=== PATIENT | male | born 1950 | race Caucasian/White ===

== ENCOUNTER 2018-04-10 15:49 | Inpatient (IN) | payer OTHER, BC ==
--- OUTSIDE RECORDS SUMMARY | 2018-04-10 15:51 | XMS REPORT | Clinical Summary ---
:1950 Author Organization [facility] Address [address] [place] [id number] Care Team Providers Name Role Phone Asked, No Pcp Primary Care Provider Unavailable Allergies No Known Allergies Medications Medication Sig Dispensed Refills Start Date End Date Status metoprolol TK 1 T PO BID 1 12/30/2017 Active tartrate WF (LOPRESSOR) 50 mg tablet losartan-hydrochl TK 1 T PO QD 1 12/30/2017 Active orothiazide (HYZAAR) 100-25 mg per tablet tamsulosin Take 1 capsule 90 capsule 3 01/20/2018 Active (FLOMAX) 0.4 mg (0.4 mg total) capsule by mouth daily. sulfamethoxazole- Take 1 tablet 14 tablet 0 01/13/2018 01/13/2018 Discontinued trimethoprim by mouth 2 (BACTRIM DS) (two) times a 800-160 mg per day for 7 tablet days. Active Problems No known active problems Encounters Date Type Specialty Care Team Description 02/03/2018 Procedure visit Urology Carlton Brown MD BPH with obstruction /lower urinary tract symptoms (Primary Dx) 01/19/2018 Telephone Urology Melissa Burnett 01/13/2018 Office Visit Urology Carlton Brown MD Elevated PSA (Primary Dx) 12/16/2017 Telephone Urology Carlton Brown MD after 04/09/2017 Family History Relation Name Status Comments Father Mother Social History Tobacco Use Types Packs/Day Years Used Date Never Smoker Smokeless Tobacco: Never Used Alcohol Use Drinks/Week oz/Week Comments No Sex Assigned at Date Recorded Not on file Job Start Date Occupation Industry Not on file Not on file Not on file Travel History Travel Start Travel End No recent travel history available. Last Filed Vital Signs Not on file Plan of Treatment Date Type Specialty Care Team Description 02/08/2019 Office Visit Urology Carlton Brown MD [address] [facility] [address] [place] [address] Health Maintenance Due Date Last Done Comments COLON CANCER SCREENING 1999 SHINGLES VACCINES (1 of 2) 1999 PNEUMOCOCCAL POLYSACCHARIDE VACCINE AGE 65 AND OVER 2014 PNEUMOCOCCAL-13 2014 INFLUENZA VACCINE 10/29/2017 Procedures Procedure Name Priority Date/Time Associated Comments Diagnosis POC URINALYSIS Routine 02/03/2018 2:30 PM BPH with Results for this DIPSTICK DANCE DIRECTOR obstruction/lower procedure are in urinary tract the results symptoms section. PSA, TOTAL AND FREE Routine 01/13/2018 2:32 PM Elevated PSA Results for this CDT procedure are in the results section. POC URINALYSIS Routine 01/13/2018 1:32 PM Elevated PSA Results for this DIPSTICK CDT procedure are in the results section. after 04/09/2017 Results POC urinalysis dipstick (02/03/2018 2:30 PM DANCE DIRECTOR)Only the most recent of2 resultswithin the time period is included. Color urine, POC Yellow Clarity urine, POC Clear Glucose urine, POC 1+ (A) Negative Bilirubin urine, POC Negative Negative Ketones urine, POC Negative Negative Specific gravity urine, POC 1.020 1.005 - 1.030 Blood urine, POC Negative Negative pH urine, POC 6.5 5.0, 5.5, 6.0, 6.5, 7.0, 7.5, 8.0, 8.5 Protein urine, POC Negative Negative Urobilinogen urine, POC <2.0 <2.0 Nitrite urine, POC Negative Negative Leukocyte esterase urine, POC Negative Negative Specimen Urine PSA, total and free (01/13/2018 2:32 PM CDT) PSA 2.6 0.0 - 4.0 ng/mL [facility] Comment: Brian ECLIA methodology. According to the [employer] [employer], Serum PSA should decrease and remain at undetectable levels after radical prostatectomy. The AUA defines biochemical recurrence as an initial PSA value 0.2 ng/mL or greater followed by a subsequent confirmatory PSA value 0.2 ng/mL or greater. Values obtained with different assay methods or kits cannot be used interchangeably. Results cannot be interpreted as absolute evidence of the presence or absence of malignant disease. PSA, free 0.73Comment: Brian ECLIA methodology. N/A ng/mL [facility] PSA, free percent 28.1 % [facility] Comment: The table below lists the probability of prostate cancer for men with non-suspicious DEWAYNE results and total PSA between 4 and 10 ng/mL, by patient age (Aneesh et al, RUTH 1998, 279:1542). % Free PSA 50-64 yr 65-75 yr 0.00-10.00%56% 55% 10.01-15.00%24% 35% 15.01-20.00%17% 23% 20.01-25.00%10% 20% >25.00% 5% 9% Please note:Aneesh et al did not make specific recommendations regarding the use of percent free PSA for any other population of men. Specimen Blood Narrative Performed At Performed at: [facility] [address] [place], [id number] Database Design Analyst: Bijan Blum MD, Phone:[phone] Performing Organization Address City/State/Zipcode Phone Number [facility] after 04/09/2017 Insurance Payer Benefit Plan / Group Subscriber ID Type Phone Address BCBS BCBS CHOICE PPO/FEDERAL EMPL PPO xxxxxxxxxxxx PPO Advance Directives Patient has advance care planning documents on file. For more information, please contact:Drew Edwards[address] [place] [address]
--- OUTSIDE RECORDS SUMMARY | 2018-04-10 15:51 | XMS REPORT ---
:1950 Author Organization [employer] Care Team Providers Name Role Phone Dale Emiliano Provider Role Unavailable Allergies, Adverse Reactions, Alerts Substance Reaction Event Type N.K.D.A. Info Not Available Non Drug Allergy Problems Problem Type Condition Code Onset Dates Condition Status Assessment Lower urinary tract symptoms R39.9 Active Problem HTN, goal below 150/90 I10 Active Problem Elevated PSA R97.20 Active Assessment Left anterior knee pain M25.562 Active Assessment Status post fall Z91.81 Active Assessment HTN, goal below 150/90 I10 Active Assessment Elevated PSA R97.20 Active Medications Medication Code Code Instructions Start End Date Status Dosage System Date Metoprolol [facility] 78507275491 50 MG Orally Active 1 tablet Tartrate Twice a day with food Losartan [facility] 57206421158 100-25 MG Orally Active 1 tablet Potassium-HCTZ Once a day Results Name Result Date Reference Range Unit Abnormality Flag Knee Left 3 View Summary Purpose eClinicalWorks Submission
--- NOTE | 2018-04-10 16:33 | EDPHYS ---
Physician Documentation [facility] Name: César Cortes Age: 68 yrs Sex: Male : 1950 Arrival Date: 04/10/2018 Time: 15:50 Bed 6 Private MD: [facility] ED Physician Nura Schulz HPI: 04/10 16:26 This 68 yrs old Male presents to ER via Ambulatory with complaints of jr8 Abnormal Lab Results. 16:26 Patient with recent diagnosis of Type 2 diabetes. Was started on Metformin and one jr8 other diabetic medication. Prior to being started on them had normal renal function. Has been feeling and doing well. Today had recheck of labs for follow up. Was called this evening to go to hospital for renal failure. Denies any symptoms . Severity of symptoms: At their worst the symptoms were mild in the emergency department the symptoms are unchanged. The patient has not experienced similar symptoms in the past. The patient has been recently seen by a physician:. Historical: - Allergies: 16:23 No Known Allergies; ph - PMHx: 16:23 Hypertension; Diabetes - NIDDM; ph - PSHx: 16:23 None; ph - Immunization history:: Adult Immunizations unknown. - Social history:: Smoking status: Patient/guardian denies using tobacco. - Ebola Screening: : No symptoms or risks identified at this time. ROS: 16:26 Constitutional: Negative for fever, chills, and weight loss, Eyes: Negative for injury, jr8 pain, redness, and discharge, ENT: Negative for injury, pain, and discharge, Neck: Negative for injury, pain, and swelling, Cardiovascular: Negative for chest pain, palpitations, and edema, Respiratory: Negative for shortness of breath, cough, wheezing, and pleuritic chest pain, Abdomen/GI: Negative for abdominal pain, nausea, vomiting, diarrhea, and constipation, Back: Negative for injury and pain, MS/Extremity: Negative for injury and deformity, Skin: Negative for injury, rash, and discoloration, Neuro: Negative for headache, weakness, numbness, tingling, and seizure. Exam: 16:26 Eyes: Pupils equal round and reactive to light, extra-ocular motions intact. Lids and jr8 lashes normal. Conjunctiva and sclera are non-icteric and not injected. Cornea within normal limits. Periorbital areas with no swelling, redness, or edema. ENT: Nares patent. No nasal discharge, no septal abnormalities noted. Tympanic membranes are normal and external auditory canals are clear. Oropharynx with no redness, swelling, or masses, exudates, or evidence of obstruction, uvula midline. Mucous membranes moist. Neck: Trachea midline, no thyromegaly or masses palpated, and no cervical lymphadenopathy. Supple, full range of motion without nuchal rigidity, or vertebral point tenderness. No Meningismus. Cardiovascular: Regular rate and rhythm with a normal S1 and S2. No gallops, murmurs, or rubs. Normal PMI, no JVD. No pulse deficits. Respiratory: Lungs have equal breath sounds bilaterally, clear to auscultation and percussion. No rales, rhonchi or wheezes noted. No increased work of breathing, no retractions or nasal flaring. Abdomen/GI: Soft, non-tender, with normal bowel sounds. No distension or tympany. No guarding or rebound. No evidence of tenderness throughout. Back: No spinal tenderness. No costovertebral tenderness. Full range of motion. Skin: Warm, dry with normal turgor. Normal color with no rashes, no lesions, and no evidence of cellulitis. MS/ Extremity: Pulses equal, no cyanosis. Neurovascular intact. Full, normal range of motion. Neuro: Awake and alert, GCS 15, oriented to person, place, time, and situation. Cranial nerves II-XII grossly intact. Motor strength 5/5 in all extremities. Sensory grossly intact. Cerebellar exam normal. Normal gait. Vital Signs: 16:21 BP 155 / 87; Pulse 66; Resp 18; Temp 98.2; Pulse Ox 100% on R/A; Weight 81.19 kg; ph Height 5 ft. 6 in. (167.64 cm); Pain 0/10; 18:04 BP 140 / 72; Pulse 58; Resp 14; Pulse Ox 99% on R/A; aj1 18:47 BP 129 / 71; Pulse 64; Resp 18; Pulse Ox 99% on R/A; aj1 20:01 BP 138 / 74; Pulse 62; Resp 18; Pulse Ox 97% on R/A; aj1 16:21 Body Mass Index 28.89 (81.19 kg, 167.64 cm) ph MDM: 16:09 Patient medically screened. jr8 16:26 ED course: Dr. Lopez consulted and will see patient . 16:26 Data reviewed: vital signs, nurses notes, lab test result(s), EKG, radiologic studies, jr8 ultrasound. Data interpreted: Pulse oximetry: on room air is 100 %. Interpretation: normal. Counseling: I had a detailed discussion with the patient and/or guardian regarding: the historical points, exam findings, and any diagnostic results supporting the discharge/admit diagnosis, lab results, radiology results, the need for further work-up and treatment in the hospital. 04/10 16:22 Order name: CBC with Diff; Complete Time: 16:47 04/10 16:22 Order name: Basic Metabolic Panel; Complete Time: 17:07 04/10 16:22 Order name: LFT's; Complete Time: 17:07 04/10 16:22 Order name: CK; Complete Time: 17:07 04/10 16:22 Order name: LDH; Complete Time: 17:07 04/10 16:25 Order name: US Rp Exam Complete 04/10 16:22 Order name: IV; Complete Time: 16:42 04/10 16:22 Order name: EKG; Complete Time: 16:23 Administered Medications: 17:20 Drug: NS 0.9% 1000 ml Route: IV; Rate: 1000 ml; Site: right antecubital; aj1 17:20 CANCELLED (Physician Discretion): NS 0.9% 1000 ml IV at 250 ml/hr continuous aj1 18:01 Drug: NS 0.9% 1000 ml Route: IV; Rate: 125 ml/hr; Site: right antecubital; aj1 Disposition: 04/11 09:34 Co-signature as Attending Physician, Nura Schulz MD. Disposition: 04/10/18 16:32 Hospitalization ordered by Seamus Valle for Inpatient Admission. Preliminary diagnosis is Acute kidney failure. - Bed requested for Telemetry/MedSurg (Inpatient). - Status is Inpatient Admission. aj1 - Condition is Stable. - Problem is new. - Symptoms are unchanged. UTI on Admission? No Signatures: Dispatcher [employer] EDMS Katerina Carolina Angela, RN RN aj1 Zackery De Dios PA PA jr8 Kym Garcia, VALDEMAR RN ph Nura Schulz MD MD gs Corrections: (The following items were deleted from the chart) 04/10 17:20 16:25 NS 0.9% 1000 ml IV at 250 ml/hr continuous ordered. jr8 aj1 17:51 16:32 Hospitalization Ordered by Seamus Valle DO for Inpatient Admission. Preliminary bd diagnosis is Acute kidney failure. Bed requested for Telemetry/MedSurg (Inpatient). Status is Inpatient Admission. Condition is Stable. Problem is new. Symptoms are unchanged. UTI on Admission? No. jr8 20:05 17:51 04/10/2018 16:32 Hospitalization Ordered by Seamus Valle DO for Inpatient aj1 Admission. Preliminary diagnosis is Acute kidney failure. Bed requested for Telemetry/MedSurg (Inpatient). Status is Inpatient Admission. Condition is Stable. Problem is new. Symptoms are unchanged. UTI on Admission? No. bd
--- NOTE | 2018-04-10 16:33 | ER ---
Nurse's Notes [facility] Name: César Cortes Age: 68 yrs Sex: Male : 1950 Arrival Date: 04/10/2018 Time: 15:50 Bed 6 Private MD: Emiliano Hunter Diagnosis: Acute kidney failure Presentation: 04/10 16:19 Presenting complaint: Patient states: I had bloodwork done today and they called me and ph said to come here because my kidney function was bad because of the medicine they have me on." Reports taking Metformin glipizide for approx 1 month, only complaint pt reports is dizziness upon standing, denies pain, swelling, decreased urination, or SOB. Transition of care: patient was not received from another setting of care. Onset of symptoms was April 10, 2018. Risk Assessment: Do you want to hurt yourself or someone else? Patient reports no desire to harm self or others. Initial Sepsis Screen: Does the patient meet any 2 criteria? No. Patient's initial sepsis screen is negative. Does the patient have a suspected source of infection? No. Patient's initial sepsis screen is negative. Care prior to arrival: None. 16:19 Method Of Arrival: Ambulatory ph 16:19 Acuity: JOHN 3 ph Historical: - Allergies: 16:23 No Known Allergies; ph - PMHx: 16:23 Hypertension; Diabetes - NIDDM; ph - PSHx: 16:23 None; ph - Immunization history:: Adult Immunizations unknown. - Social history:: Smoking status: Patient/guardian denies using tobacco. - Ebola Screening: : No symptoms or risks identified at this time. Screenin:20 Abuse screen: Denies threats or abuse. Denies injuries from another. Nutritional aj1 screening: No deficits noted. Tuberculosis screening: No symptoms or risk factors identified. 20:03 Fall Risk No fall in past 12 months (0 pts). No secondary diagnosis (0 pts). IV access aj1 (20 points). Ambulatory Aid- None/Bed Rest/Nurse Assist (0 pts). Gait- Normal/Bed Rest/Wheelchair (0 pts) Mental Status- Oriented to own ability (0 pts). Total Kim Fall Scale indicates No Risk (0-24 pts). Assessment: 16:20 General: Appears in no apparent distress. comfortable, Behavior is calm, cooperative, aj1 appropriate for age. Pain: Denies pain. Neuro: Level of Consciousness is awake, alert, obeys commands, Speech is normal, Facial symmetry appears normal, Reports dizziness, upon standing. Cardiovascular: Patient's skin is warm and dry. Respiratory: Airway is patent Respiratory effort is even, unlabored, Respiratory pattern is regular, symmetrical. GI: No signs and/or symptoms were reported involving the gastrointestinal system. : No signs and/or symptoms were reported regarding the genitourinary system. EENT: No signs and/or symptoms were reported regarding the EENT system. Derm: No signs and/or symptoms reported regarding the dermatologic system. Skin is pink, warm \\T\\ dry. normal. Musculoskeletal: No signs and/or symptoms reported regarding the musculoskeletal system. Circulation, motion, and sensation intact. 17:30 Reassessment: Patient appears in no apparent distress at this time. No changes from aj1 previously documented assessment. Patient and/or family updated on plan of care and expected duration. Pain level reassessed. Patient is alert, oriented x 3, equal unlabored respirations, skin warm/dry/pink. 18:46 Reassessment: Patient appears in no apparent distress at this time. No changes from aj1 previously documented assessment. Patient and/or family updated on plan of care and expected duration. Pain level reassessed. Patient is alert, oriented x 3, equal unlabored respirations, skin warm/dry/pink. 19:45 Reassessment: Patient appears in no apparent distress at this time. No changes from aj1 previously documented assessment. Patient and/or family updated on plan of care and expected duration. Pain level reassessed. Patient is alert, oriented x 3, equal unlabored respirations, skin warm/dry/pink. Vital Signs: 16:21 BP 155 / 87; Pulse 66; Resp 18; Temp 98.2; Pulse Ox 100% on R/A; Weight 81.19 kg; ph Height 5 ft. 6 in. (167.64 cm); Pain 0/10; 18:04 BP 140 / 72; Pulse 58; Resp 14; Pulse Ox 99% on R/A; aj1 18:47 BP 129 / 71; Pulse 64; Resp 18; Pulse Ox 99% on R/A; aj1 20:01 BP 138 / 74; Pulse 62; Resp 18; Pulse Ox 97% on R/A; aj1 16:21 Body Mass Index 28.89 (81.19 kg, 167.64 cm) ph ED Course: 15:50 Patient arrived in ED. as 15:51 Emiliano Hunter DO is Private Physician. as 16:09 Ascencion Rich PA is PHCP. cp 16:09 Nura Schulz MD is Attending Physician. cp 16:09 PHCP role handed off by Ascencion Rich PA jr8 16:09 Zackery De Dios PA is PHCP. jr8 16:10 Cyndee Douglass RN is Primary Nurse. aj1 16:20 Patient has correct armband on for positive identification. Bed in low position. Call aj1 light in reach. Side rails up X 1. 16:20 Arm band placed on. aj1 16:20 No provider procedures requiring assistance completed. aj1 16:21 Triage completed. ph 16:31 Seamus Valle DO is Hospitalizing Provider. jr8 16:36 EKG done, by swimming pool service technician. reviewed by Zackery VERAS. sm3 16:41 Inserted saline lock: 20 gauge in right forearm, using aseptic technique. Blood bp collected. 20:01 Patient admitted, IV remains in place. aj1 20:03 Report given to VALDEMAR Augustin on 4th floor. aj1 Administered Medications: 17:20 Drug: NS 0.9% 1000 ml Route: IV; Rate: 1000 ml; Site: right antecubital; aj1 17:20 CANCELLED (Physician Discretion): NS 0.9% 1000 ml IV at 250 ml/hr continuous aj1 18:01 Drug: NS 0.9% 1000 ml Route: IV; Rate: 125 ml/hr; Site: right antecubital; aj1 Output: 17:48 Urine: 150ml (Voided); Total: 150ml. aj1 Outcome: 16:32 Decision to Hospitalize by Provider. jr8 20:04 Admitted to Tele accompanied by tech, via wheelchair, with chart. aj1 20:04 Condition: stable 20:04 Discharge instructions given to patient, Instructed on discharge instructions, follow up and referral plans. Demonstrated understanding of instructions, follow-up care. 20:05 Patient left the ED. aj1 Signatures: Cyndee Douglass RN RN aj1 [place]a [place] as Zackery De Dios PA PA jr8 Kym Garcia RN RN ph Ascencion Rich PA PA cp Peltier, Brian RN RN bp Juanita Sevilla 3
[2018-04-10 16:44] LABS: Absolute Lymphocytes (CBC) 0.9 K/uL (0.7-4.9); Absolute Monocytes 0.4 K/uL (0.1-1.3); Absolute Neutrophil 3.2 K/uL (1.8-8.0); Basophils % 0.4 % (0-1.3); Eosinophils % 2.1 % (0-4.4); Hematocrit 39.9 % (39.6-49.0); Lymphocytes % 19.2 % (15.3-44.8); MPV 7.6 fL (7.6-11.3); Monocytes % 9.1 % (3.3-12.3); RBC Red Blood Cell Count 4.42 M/uL (4.33-5.43)
[2018-04-10 17:01] LABS: Albumin 4.6 g/dL (3.4-5.0); Bilirubin Direct 0.3 mg/dL (0-0.2); Bilirubin Total 0.9 mg/dL (0.2-1.0); Potassium 3.8 mmol/L (3.5-5.1); Protein, Total 8.2 g/dL (6.4-8.2)
--- NOTE | 2018-04-10 17:04 | P.HP ---
Certification for Inpatient Patient admitted to: Inpatient With expected LOS: >2 Midnights Patient will require the following post-hospital care: None Practitioner: I am a practitioner with admitting privileges, knowledge of patient current condition, hospital course, and medical plan of care. Services: Services provided to patient in accordance with Admission requirements found in Title 42 Section 412.3 of the Code of Federal Regulations Patient History Date of Service: 04/10/18 [facility] for [facility]: Abnormal lab History of Present Illness: 68-year-old male presented to the emergency room after he was sent by his PCP due to abnormal lab. Apparently the patient was diagnosed with diabetes about 3-6 weeks ago. At that time his A1c was greater than 14. The patient was started on metformin and glyxambi(empagliflozin/linagliptin) for is diabetes. Patient previously on losartan/hydrochlorothiazide, metoprolol and Flomax for hypertension and BPH. He went to his PCP to get re-evaluated indicated acute renal failure. Patient was sent to the emergency room for further evaluation. Patient denied any significant nausea, vomiting, fever, chills. No significant fatigue or chest pain noted. In the ER patient was evaluated. Lab reviewed. Repeat lab obtained. Patient admitted for further treatment. Nephrology consulted. Patient getting renal ultrasound. When I saw the patient ER, he appeared stable. No complaints noted. Patient denies taking any nonsteroidal anti-inflammatories. Home medications reviewed. Patient also reports that he has been walking about 2 miles a day. Allergies No Known Allergies Allergy (Unverified 05/01/12 17:53) Home medications list reviewed: Yes Home Medications: Losartan/Hydrochlorothiazide [Losartan-Hctz 100-25 mg Tab] 1 each PO DAILY 05/02 Metoprolol Succinate [Toprol Xl*] 50 mg PO BID 05/02/12 - Past Medical/Surgical History Diabetic: No -: HTN -: Diabetes mellitus type 2 -: BPH -: Hernia repair -: Anal fissure Psychosocial/ Personal History: Patient is . He has 1 child. He is retired natural sciences professor. - Family History Mother -: Diabetes - Social History Smoking Status: Never smoker Alcohol use: No CD- Drugs: No Caffeine use: Yes Place of Residence: Home Review of Systems General: As per HPI Eyes: Unremarkable ENT: Unremarkable Respiratory: Unremarkable Cardiovascular: Unremarkable Gastrointestinal: Unremarkable Genitourinary: Unremarkable Musculoskeletal: Unremarkable Integumentary: Unremarkable Neurological: Unremarkable Lymphatics: Unremarkable Physical Examination - Physical Exam General: Alert, In no apparent distress, Oriented x3, Cooperative HEENT: Atraumatic, Normocephalic, PERRLA, Mucous membr. moist/pink Neck: Supple, No Thyromegaly Respiratory: Clear to auscultation bilaterally, Normal air movement Cardiovascular: Normal pulses, Regular rate/rhythm Gastrointestinal: Normal bowel sounds, Soft and benign, Non-distended, No tenderness, No masses, No rebound, No guarding Musculoskeletal: No erythema, No tenderness, No warmth Integumentary: No tenderness/swelling, No erythema, No warmth, No cyanosis Neurological: Normal speech, Normal strength at 5/5 x4 extr, Normal tone, Normal affect - Studies Laboratory Data (last 24 hrs) 04/10/18 16:30: WBC 4.7, Hgb 13.2 L, Hct 39.9, Plt Count 154 Assessment and Plan - Plan Impression: Acute renal failure likely related to medications Diabetes mellitus type 2, uncontrolled Hypertension BPH Plan: Acute renal failure likely related to medications: Patient admitted for further evaluation. Patient given IV fluid bolus in the emergency room. Will continue with IV fluids. Will monitor strict input and output. Will hold off on Mckeon catheter due to history of BPH. Patient requests no urinary catheter as well. Acute renal failure likely related to multiple medications including metformin, glyxambi(empagliflozin/linagliptin), and losartan/ hydrochlorothiazide. All these medications will be discontinued. Patient likely would benefit with basal insulin but will check to see how he does with sliding scale. Nephrology has been consulted. Await renal ultrasound findings. Will continue monitor patient on IV fluids. Diabetes mellitus type 2, uncontrolled: Will discontinue metformin, glyxambi( empagliflozin/linagliptin). Will continue sliding scale. Patient may benefit with basal insulin as A1c still 9.4. Will check to see how he responds to current diet. Hypertension: Will hold losartan/hydrochlorothiazide due to acute renal failure. Will continue with metoprolol. Will provide IV hydralazine as needed. BPH: Will continue with Flomax. Will hold off on Mckeon catheter. Discharge Plan: Home Plan to discharge in: Greater than 2 days - Advance Directives Does patient have a Living Will: Yes Does patient have a Durable POA for Healthcare: Yes - Code Status/Comfort Care Code Status Assessed: Yes (Patient full code.) Time Spent Managing Pts Care (In Minutes): 55
[2018-04-10] MEDS ORDERED: NA CHLORIDE 0.9% 2,000 ML ONE (17:19)
--- NOTE | 2018-04-10 18:25 | EKG ---
Test Date: 2018-04-10 Test Time: 16:17:30 Depot Manager: NORMAN MEASUREMENT RESULTS: Intervals: Rate: 67 UT: 224 QRSD: 94 QT: 398 QTc: 420 [place]: P: 47 UT: 224 QRS: 8 T: 47 INTERPRETIVE STATEMENTS: Sinus rhythm with 1st degree AV block Possible Left atrial enlargement Borderline ECG Compared to ECG 06/10/2016 06:59:31 No significant changes Electronically Signed On 04-10-18 18:24:47 [employer] by Kam Holland
--- NOTE | 2018-04-10 20:07 | RAD REPORT ---
EXAM DESCRIPTION: US - Renal Ultrasound-Complete - 04/10/2018 7:48 pm CLINICAL HISTORY: acute renal failure COMPARISON: No comparisons FINDINGS: Both kidneys are normal in size, shape and echotexture. The right kidney measures 10.5 x 5.3 x 5.0 cm. No hydronephrosis, focal mass or perinephric fluid. The left kidney measures 11.2 x 5.1 x 4.7 cm. No hydronephrosis, focal mass or perinephric fluid. The urinary bladder is incompletely distended without gross abnormality seen. IMPRESSION: Unremarkable renal sonogram.
[2018-04-10] MEDS ORDERED: ONDANSETRON 4 MG/2 ML VIAL IV PRN (20:25)
[2018-04-10] MEDS ORDERED: HYDRALAZINE HCL 20 MG/ML VIAL IV PRN (20:25)
[2018-04-10] MEDS ORDERED: ACETAMINOPHEN 500 MG TAB PO PRN (20:25)
[2018-04-10 20:28] VITALS: BMI 30.1
[2018-04-10] MEDS: INSULIN -REGULAR HUMAN 50 UNIT/0.5 ML ML SQ SCH (21:00)
[2018-04-10] MEDS ORDERED: METOPROLOL TAR 50 MG TAB PO SCH (21:00)
[2018-04-10] MEDS: FAMOTIDINE 20 MG TAB PO SCH (21:34)
[2018-04-10] MEDS: NA CHLORIDE 0.9% 1,000 ML IV SCH (21:34)
[2018-04-10] MEDS: TAMSULOSIN 0.4 MG SR CAP PO SCH (21:34)
[2018-04-10 21:36] LABS: Thyroid Stimulating Hormone 12.5 uIU/mL (0.360-3.740)
[2018-04-11] MEDS: NA CHLORIDE 0.9% 1,000 ML IV SCH (03:17)
[2018-04-11 04:00] LABS: Urine Protein/Creatinine Ratio 0.23 ratio (<0.15)
[2018-04-11 04:27] LABS: Urine Appearance CLEAR; Urine Bilirubin NEGATIVE (NEG); Urine Blood NEGATIVE (NEG); Urine Color YELLOW; Urine Glucose 2+ (NEG); Urine Protein NEGATIVE (NEG); Urine Specific Gravity 1.015 (1.005-1.030); Urine Urobilinogen 0.2 mg/dL (0.2-1.0); Urine pH 5.5 (5.0-7.0)
[2018-04-11 05:02] LABS: Urine Bacteria <20 /HPF (NONE SEEN); Urine Culture Reflex Order NOT NEEDED; Urine RBC NONE SEEN /HPF (NONE SEEN)
[2018-04-11 06:31] LABS: Absolute Lymphocytes (CBC) 1.1 K/uL (0.7-4.9); Absolute Monocytes 0.3 K/uL (0.1-1.3); Absolute Neutrophil 1.9 K/uL (1.8-8.0); Eosinophils % 2.6 % (0-4.4); Hematocrit 34.4 % (39.6-49.0); Lymphocytes % 31.7 % (15.3-44.8); MPV 7.6 fL (7.6-11.3); Monocytes % 9.3 % (3.3-12.3); RBC Red Blood Cell Count 3.84 M/uL (4.33-5.43)
[2018-04-11 06:44] LABS: Magnesium 2.2 mg/dL (1.8-2.4); Potassium 3.3 mmol/L (3.5-5.1)
[2018-04-11] MEDS: INSULIN -REGULAR HUMAN 50 UNIT/0.5 ML ML SQ SCH ×4 (07:30→21:00)
[2018-04-11] MEDS ORDERED: METOPROLOL TAR 25 MG TAB PO SCH (09:00)
--- NOTE | 2018-04-11 09:42 | P.PN ---
Subjective Date of Service: 04/11/18 Primary Care Provider: Dr. Emiliano Hunter; [facility] Chief Complaint: Abnormal lab Subjective: Doing well (No complaints noted.) Physical Examination - Vital Signs Temperature: 97.8 F Blood Pressure: 111/66 Pulse: 56 Respirations: 18 Pulse Ox (%): 98 - Physical Exam General: Alert, In no apparent distress, Oriented x3, Cooperative HEENT: Atraumatic Neck: Supple Respiratory: Clear to auscultation bilaterally, Normal air movement Cardiovascular: Normal pulses, Regular rate/rhythm Gastrointestinal: Normal bowel sounds, Soft and benign, Non-distended, No tenderness, No masses, No rebound, No guarding Musculoskeletal: No erythema, No tenderness, No warmth Integumentary: No tenderness/swelling, No erythema, No warmth, No cyanosis Neurological: Normal speech, Normal strength at 5/5 x4 extr, Normal tone, Normal affect Lymphatics: No axilla or inguinal lymphadenopathy - Studies Laboratory Data (last 24 hrs) 04/10/18 16:30: Sodium 140, Potassium 3.8, BUN 50 H, Creatinine 3.64 H, Glucose 105, Total Bilirubin 0.9, AST 22, ALT 31, Alkaline Phosphatase 48 04/10/18 16:30: WBC 4.7, Hgb 13.2 L, Hct 39.9, Plt Count 154 Medications List Reviewed: Yes Assessment & Plan Discharge Plan: Home Plan to discharge in: 24 Hours Physician Review Additional Text: Impression: Acute renal failure likely related to medications Diabetes mellitus type 2, uncontrolled Hypertension BPH Subclinical hypothyroidism Obesity, BMI 30 Plan: Acute renal failure likely related to medications: Patient doing well. Renal ultrasound unremarkable. Good urinary output noted. Renal function improved. Acute renal failure likely related to multiple medications including metformin, glyxambi(empagliflozin/linagliptin), and losartan/hydrochlorothiazide. Continue to hold medications. Medications may need to be discontinued at discharge. Possible discharge as early as tomorrow if significantly improved. Will discuss with nephrology. I will turn the service over to Dr. Hunter tomorrow. I will go over the plan of care with her. Diabetes mellitus type 2, uncontrolled: Patient has done well in modifying his diet and losing weight. Blood sugars well controlled off discontinued medications-metformin, glyxambi(empagliflozin/linagliptin). Will continue sliding scale. Will recheck A1c to verify if the patient will require medication at discharge. Patient will controlled with diet at this time. Hypertension: Patient has done well in modifying his diet and losing weight. Blood pressure well controlled off discontinued medication-losartan/ hydrochlorothiazide. Will decrease metoprolol to 12.5 mg 1 pill twice daily. At discharge losartan/hydrochlorothiazide likely will not be required. Further adjustment in metoprolol may be required. BPH: Will continue with Flomax. Subclinical hypothyroidism: Tsh significantly abnormal. Free T4 within normal range. Anticipate need for medication. Will start low-dose levothyroxine 50 mcg daily. Recommend to recheck tsh and free T4 in 4-6 weeks. Patient may benefit with endocrinology evaluation as an outpatient. Obesity, BMI 30: Continue to address lifestyle modification education. Patient has done well with exercise and losing weight. Time Spent Managing Pts Care (In Minutes): 55
[2018-04-11] MEDS: NACHLORIDE 0.45% 1,000 ML IV SCH ×2 (09:54→18:22)
[2018-04-11] MEDS ORDERED: POTASSIUM CL SA 10 MEQ TAB PO ONE (13:55)
--- NOTE | 2018-04-11 15:32 | CON ---
Date of Consultation: 04/11/2018 NEPHROLOGY CONSULTATION Additional Consulting Physician: Seamus Valle DO. Reason For Consultation: Elevated BUN and creatinine, fluid management. History Of Present Illness: This is a 68-year-old gentleman who apparently recently a few months ago was diagnosed with diabetes with hemoglobin A1c above 14. At that time, was started on metformin, e mpagliflozin with linagliptin. According to him, he stopped working hard with trying to lose weight. The patient's blood sugar started being better controlled. Hemoglobin A1c was down to 9. The richelle ent also was on losartan and hydrochlorothiazide. When the patient came for followup with his [facility], his kidney function showed elevation in BUN and creatinine. For that reason, the patient was directed to the hospital. Reviewing the record, the patient back in December 2016, creatinine 1.5 at that time and his GFR was 45. Upon admission, GFR of 17 with creatinine of 3.6. The patient was st arted on IV hydration. Kidney function started to improve. Creatinine down to 2.9, GFR of 22. The patient denied taking any nonsteroidal. No IV contrast. As I mentioned, the patient being on empagl iflozin and linagliptin and hydrochlorothiazide with losartan. The patient denied any IV contrast. Home Medications: Include: 1.Metformin. 2.Losartan/hydrochlorothiazide. 3.Glyxambi. 4.Metoprolol. Past Surgical History: Include hernia repair and anal fissure. Family History: Positive for diabetes and hypertension. Social History: Denies smoking. Denies drinking. Denies drug abuse. Review of Systems: Head and Neck: No red eye. No ear pain. GI: Has nausea. No vomiting. : No polyuria, no dysuria, no hematuria. Front Sight Attacher: Not applicable. Respiratory: No shortness of breath. Cardiovascular: No chest pain. Endocrine: No polydipsia. Skin: No rash. Physical Examination: Vital Signs: Blood pressure 128/71, pulse of 58. Chest: Clear to auscultation. Heart: S1, S2. Regular. Abdomen: Soft, nontender. Extremities: No edema. Neurological: Oriented x3. Nonfocal. Skin: No rash. Laboratory Data: Sodium 143, potassium 3.3, bicarb 25, BUN 42, creatinine 2.9, GFR 22, calcium 8.3, magnesium of 2.2, TSH of 12. WBC 3.5, H and H 11.7/34.4, platelets of 142. Urinalysis, protein crea tinine 0.3. Serology was negative for hepatitis. Current Medications: The patient is on include Lovenox, Flomax, hydralazine p.r.n., metoprolol 12.5 b.i.d., Pepcid, levothyroxine, normal saline at 125. Assessment And Plan: 1.Acute kidney injury, mostly secondary to hydrochlorothiazide and losartan/antihyperglycemic medica tion superimposed with poor intake in the presence of anemia. Light chain disease needs to be ruled out. I am going to go ahead and send for serum protein electrophoresis. We will continue hydration. I agree with holding above medication including the metformin and we will follow up. 2.Hypertension, currently controlled, optimal, in fact on the lower side. I am going to keep holdin g the losartan and hydrochlorothiazide. Continue hydration. 3.Hypokalemia. I will go ahead and supplement. 4.Anemia possibly secondary to chronic kidney disease. Given the acute kidney injury, light chain disease needs to be ruled out. I will send for SPEP and we will fol low up. SERENE/MARY ANNE Voice ID: [id number] Report ID: [id number]
[2018-04-11] MEDS ORDERED: ENOXAPARIN 30 MG/0.3 ML SQ SCH (17:00)
[2018-04-11] MEDS ORDERED: NA CHLORIDE 0.9% 500 ML IV ONE (17:22)
[2018-04-11] MEDS: TAMSULOSIN 0.4 MG SR CAP PO SCH (21:09)
[2018-04-11] MEDS: FAMOTIDINE 20 MG TAB PO SCH (21:09)
[2018-04-11] MEDS: METOPROLOL TAR 25 MG TAB PO SCH (21:09)
[2018-04-12] MEDS: NACHLORIDE 0.45% 1,000 ML IV SCH ×2 (02:00→09:15)
[2018-04-12] MEDS ORDERED: LEVOTHYROXINE SOD 0.05 MG TABLET PO SCH (06:30)
[2018-04-12 07:04] LABS: Absolute Lymphocytes (CBC) 0.9 K/uL (0.7-4.9); Absolute Monocytes 0.3 K/uL (0.1-1.3); Absolute Neutrophil 1.7 K/uL (1.8-8.0); Basophils % 1.1 % (0-1.3); Eosinophils % 2.6 % (0-4.4); Hematocrit 36.4 % (39.6-49.0); Lymphocytes % 30.3 % (15.3-44.8); Monocytes % 8.6 % (3.3-12.3); RBC Red Blood Cell Count 4.06 M/uL (4.33-5.43)
[2018-04-12 07:20] LABS: Albumin 3.6 g/dL (3.4-5.0); Phosphorus 3.1 mg/dL (2.5-4.9); Potassium 3.5 mmol/L (3.5-5.1)
[2018-04-12] MEDS: INSULIN -REGULAR HUMAN 50 UNIT/0.5 ML ML SQ SCH ×2 (07:30→11:30)
[2018-04-12 09:13] VITALS: O2SAT 98
[2018-04-12] MEDS: METOPROLOL TAR 25 MG TAB PO SCH (09:15)
[2018-04-12 12:04] VITALS: BP 158/77; TEMP 97.5
--- NOTE | 2018-04-12 15:46 | P.DS ---
Admission Date: 04/10/18 Discharge Date: 04/12/18 Primary Care Provider: Dr. Emiliano Hunter; [facility] Disposition: ROUTINE DISCHARGE Discharge Condition: GOOD Reason for Admission: Abnormal lab Consultations: Nephrology - Problems (1) Abnormal kidney function Status: Acute (2) Diabetes Status: Chronic Qualifiers: Diabetes mellitus type: type 2 Diabetes mellitus detention insulin use: without terminal makeup operator use Diabetes mellitus complication status: without complication Qualified Code(s): E11.9 - Type 2 diabetes mellitus without complications (3) Hypertension Onset Date: 06/10/16 Status: Chronic Qualifiers: Hypertension type: essential hypertension Qualified Code(s): I10 - Essential (primary) hypertension Brief History of Present Illness: 68-year-old male presented to the emergency room after he was sent by his PCP due to abnormal lab. Apparently the patient was diagnosed with diabetes about 3-6 weeks ago. At that time his A1c was greater than 14. The patient was started on metformin and glyxambi(empagliflozin/linagliptin) for is diabetes. Patient previously on losartan/hydrochlorothiazide, metoprolol and Flomax for hypertension and BPH. He went to his PCP to get re-evaluated indicated acute renal failure. Patient was sent to the emergency room for further evaluation. Patient denied any significant nausea, vomiting, fever, chills. No significant fatigue or chest pain noted. In the ER patient was evaluated. Lab reviewed. Repeat lab obtained. Patient admitted for further treatment. Nephrology consulted. Patient getting renal ultrasound. When I saw the patient ER, he appeared stable. No complaints noted. Patient denies taking any nonsteroidal anti-inflammatories. Home medications reviewed. Patient also reports that he has been walking about 2 miles a day. Hospital Course: Overall during the hospital stay patient remained stable The patient was initially admitted to the hospital for acute kidney injury most likely secondary to his diabetic medication metformin and glipizide that started recently by his primary care doctor. Patient also was taking losartan hydrochlorothiazide which might have aided acute kidney injury. Nephrology was consulted here in the hospital recommending discontinuing the offending agent and continuing patient on IV fluids. IV fluids were started. Patient did well overall. Patient's creatinine improved while here in the hospital. Patient was discharged home and was asked to stop taking his metformin and the other diabetic medications. Patient was asked to continue using the blood sugar logs and was asked to follow up with primary care doctor regarding his home medication for diabetes. Patient's blood sugars here in the hospital less than 100 thus he was not started on any diabetic medication. Patient was asked to follow up with primary which point patient will have his insulin started. Patient demonstrated understanding regarding the plan and was discharged home under stable condition Vital Signs/Physical Exam: Temp Pulse Resp BP Pulse Ox 97.5 F 61 18 158/77 H 98 04/12/18 12:00 04/12/18 12:00 04/12/18 12:00 04/12/18 12:00 04/12/18 12:00 General: Alert, In no apparent distress HEENT: Atraumatic, PERRLA, EOMI Neck: Supple, JVD not distended Respiratory: Clear to auscultation bilaterally, Normal air movement Cardiovascular: Regular rate/rhythm, Normal S1 S2 Gastrointestinal: Normal bowel sounds, No tenderness Musculoskeletal: No tenderness Integumentary: No rashes Neurological: Normal speech, Normal tone, Normal affect Lymphatics: No axilla or inguinal lymphadenopathy Laboratory Data at Discharge: WBC 3.0 K/uL (4.3-10.9) L D 04/12/18 05:45 Hgb 12.1 g/dL (13.6-17.9) L 04/12/18 05:45 Hct 36.4 % (39.6-49.0) L 04/12/18 05:45 Plt Count 148 K/uL (152-406) L 04/12/18 05:45 Sodium 144 mmol/L (136-145) 04/12/18 05:45 Potassium 3.5 mmol/L (3.5-5.1) 04/12/18 05:45 BUN 28 mg/dL (7-18) H 04/12/18 05:45 Creatinine 2.11 mg/dL (0.55-1.3) H 04/12/18 05:45 Glucose 89 mg/dL (74-106) 04/12/18 05:45 Phosphorus 3.1 mg/dL (2.5-4.9) 04/12/18 05:45 Magnesium 2.0 mg/dL (1.8-2.4) 04/12/18 05:45 Total Bilirubin 0.9 mg/dL (0.2-1.0) 04/10/18 16:30 AST 22 U/L (15-37) 04/10/18 16:30 ALT 31 U/L (12-78) 04/10/18 16:30 Alkaline Phosphatase 48 U/L (45-117) 04/10/18 16:30 Triglycerides 106 mg/dL (<150) 04/11/18 05:33 Cholesterol 94 mg/dL (<200) 04/11/18 05:33 HDL Cholesterol 46 mg/dL (40-60) 04/11/18 05:33 Cholesterol/HDL Ratio 2.04 04/11/18 05:33 Home Medications: Tamsulosin [Flomax*] 0.4 mg PO BEDTIME 04/11/18 Metoprolol Tartrate [Lopressor*] 12.5 mg PO BID #60 tab 04/12/18 New Medications: Metoprolol Tartrate [Lopressor*] 12.5 mg PO BID #60 tab Patient Discharge Instructions: Please f.u with PCP and Nephrology in 1 to 2 week post discharge. Stop Taking. Metformin, Losartan/HCTZ. Change Metoprolol 12.5mg BID Diet: Regular Activity: Ad afshan Followup: Alex Tran MD [ACTIVE - CAN ADMIT] - 1 Week (call to schedule appointment ) Emiliano Hunter DO [Primary Care Provider] - 1 Week (call to schedule appointment)
--- NOTE | 2018-04-12 21:00 | PN ---
Date of Progress Note: 04/12/2018 NEPHROLOGY FOLLOWUP Subjective: The patient doing well. No nausea. No vomiting. Blood pressure has been stable. Physical Examination: Vital Signs: Blood pressure 135/66, pulse of 61. The patient had good urine output of 1400. Chest: Clear to auscultation. Heart: S1, S2 regular. Abdomen: Soft, nontender. Extremities: No edema. Laboratory Data: H and H 12.1/36.4. Sodium 144, potassium 3.5, bicarb 28, BUN 28, creatinine down t o 2.1. GFR 31. Calcium 8.5, phosphorus 3.1, magnesium of 2. SPEP is still pending. TSH of 12. Pr otein-creatinine of 0.3. Current Medications: The patient on include: 1.Flomax. 2.Lovenox. 3.Metoprolol 12.5. 4.Pepcid. 5.Zofran. 6.IV fluid at 125 per hour. Assessment And Plan: 1.Acute kidney injury, normal size kidney, proteinuric, nonnephrotic secondary to glucose diuresis a nd superimposed with losartan and hydrochlorothiazide, recovered, look to me normal volume. I am goi ng to discontinue IV fluid. We will monitor. The patient cleared from the renal standpoint for disc harge planning to follow up in the office in 2 to 3 weeks. 2.Hypertension, controlled. I am going to keep holding hydrochlorothiazide and losartan. Continue metoprolol. Discontinue IV fluid. 3.Hypothyroidism. Continue levothyroxine. 4.Diabetes as by the Primary. SERENE/MARY ANNE Voice ID: [id number] Report ID: [id number]
[2018-04-16 19:38] LABS: Albumin, (SPE) 3.7 g/dL (3.8-4.8); Alpha-1-Globulins 0.2 g/dL (0.2-0.3); Alpha-2-Globulins 0.8 g/dL (0.5-0.9); Gamma Globulins 0.8 g/dL (0.8-1.7); INTERPRETATION REPORT
== END 2018-04-12 14:35 | disposition home or self-care (01) | DRG 684 ==
LOC: ER 15:49 → ERHOLD 16:53 → 4TH 20:02
PROVIDERS: ADMIT Family Medicine; ATTEND Family Medicine
DX: N17.9 Acute kidney failure, unspecified (principal); N14.1 Nephropathy induced by other drugs, medicaments and biological substances; T38.3X5A Adverse effect of insulin and oral hypoglycemic [antidiabetic] drugs, initial encounter; Y92.009 Unspecified place in unspecified non-institutional (private) residence as the place of occurrence of the external cause; N40.0 Benign prostatic hyperplasia without lower urinary tract symptoms; I10 Essential (primary) hypertension; E02 Subclinical iodine-deficiency hypothyroidism; E66.9 Obesity, unspecified; Z68.30 Body mass index [BMI] 30.0-30.9, adult; E87.6 Hypokalemia; E11.9 Type 2 diabetes mellitus without complications
CPT/HCPCS: 36415; 76770; 80048; 80061; 80069; 80076; 81001; 82550; 82570; 82962; 83036; 83615; 83735; 84156; 84165; 84300; 84439; 84443; 85025; 93005; 99285; J1650; J7030

== ENCOUNTER 2018-11-19 15:07 | Emergency (ER) | payer OTHER, BC ==
--- OUTSIDE RECORDS SUMMARY | 2018-11-19 15:10 | XMS REPORT ---
:1950 Author Organization [employer] Care Team Providers Name Role Phone Emiliano Hunter Provider Role Unavailable Allergies, Adverse Reactions, Alerts Substance Reaction Event Type N.K.D.A. Info Not Available Non Drug Allergy Problems Problem Type Condition Code Onset Dates Condition Status Assessment Subclinical hypothyroidism E03.9 Active Assessment HTN, goal below 150/90 I10 Active Assessment Elevated PSA R97.20 Active Assessment Type 2 diabetes mellitus with E11.65 Active hyperglycemia Problem Type 2 diabetes mellitus with E11.65 Active hyperglycemia Problem Subclinical hypothyroidism E03.9 Active Problem Type 2 diabetes mellitus with other E11.29 Active diabetic kidney complication Assessment Type 2 diabetes mellitus with other E11.29 Active diabetic kidney complication Problem Elevated PSA R97.20 Active Problem HTN, goal below 150/90 I10 Active Medications Medication Code Code Instructions Start End Status Dosage System Date Date Losartan [facility] 64308269847 100-25 MG Orally Active 1 tablet Potassium-HCTZ Once a day Metoprolol [facility] 18410190882 50 MG Orally Active 1 tablet Tartrate Twice a day with food Tamsulosin HCl ND 45990695901 0.4 MG Orally Active 1 capsule Once a day 30 minutes after the same meal each day Losartan ND 39341878556 100-25 MG Orally Active 1 tablet Potassium-HCTZ Once a day Results No Known Results Summary Purpose [employer] Submission
--- OUTSIDE RECORDS SUMMARY | 2018-11-19 15:10 | XMS REPORT ---
:1950 Author Organization [employer] Care Team Providers Name Role Phone Emiliano Hunter Provider Role Unavailable Allergies, Adverse Reactions, Alerts Substance Reaction Event Type N.K.D.A. Info Not Available Non Drug Allergy Problems Problem Type Condition Code Onset Dates Condition Status Assessment Elevated PSA R97.20 Active Assessment Type 2 diabetes mellitus with other E11.29 Active diabetic kidney complication Assessment HTN, goal below 150/90 I10 Active Assessment Type 2 diabetes mellitus with E11.65 Active hyperglycemia Assessment Subclinical hypothyroidism E03.9 Active Problem Type 2 diabetes mellitus with E11.65 Active hyperglycemia Problem Subclinical hypothyroidism E03.9 Active Problem Type 2 diabetes mellitus with other E11.29 Active diabetic kidney complication Assessment Acute renal failure, unspecified N17.9 Active acute renal failure type Problem Elevated PSA R97.20 Active Problem HTN, goal below 150/90 I10 Active Medications Medication Code Code Instructions Start End Status Dosage System Date Date Glyxambi [facility] 72164014093 10-5 MG Orally Apr 16, Inactive 1 tablet Once a day 2019 in the morning Metoprolol ND 90208431008 25 MG Orally Active 1 tablet Tartrate Twice a day with food Losartan ND 37173443696 100-25 MG Active 1 tablet Potassium-HCTZ Orally Once a day Tamsulosin HCl ND 21159540124 0.4 MG Orally Active 1 capsule Once a day 30 minutes after the same meal each day Metformin HCl ND 35045074108 1000 MG Orally Inactive 1 tablet TWICE A DAY with a meal Losartan ND 55318702211 100-25 MG Inactive 1 tablet Potassium-HCTZ Orally Once a day Results No Known Results Summary Purpose [employer] Submission
--- OUTSIDE RECORDS SUMMARY | 2018-11-19 15:10 | XMS REPORT ---
[...] End Status Dosage System Date Date Losartan [facility] 90968418175 25 MG Orally Active 1 tablet Potassium Once a day Losartan [facility] 87269584973 100-25 MG Orally Active 1 tablet Potassium-HCTZ Once a day Tamsulosin HCl ND 71319337379 0.4 MG Orally Active 1 capsule Once a day 30 minutes after the same meal each day Metoprolol ND 87723468043 25 MG Orally Active 1 tablet Tartrate Twice a day with food Results No Known Results Summary Purpose [employer]Works Submission
--- OUTSIDE RECORDS SUMMARY | 2018-11-19 15:10 | XMS REPORT ---
:1950 Author Organization [employer] Care Team Providers Name Role Phone Emiliano Hunter Provider Role Unavailable Allergies No Known Allergies Problems Problem Type Condition Code Onset Dates Condition Status Problem Type 2 diabetes mellitus with E11.65 Active hyperglycemia Problem Subclinical hypothyroidism E03.9 Active Problem Type 2 diabetes mellitus with other E11.29 Active diabetic kidney complication Problem Elevated PSA R97.20 Active Problem HTN, goal below 150/90 I10 Active Medications No Known Medications Results No Known Results Summary Purpose [employer] Submission
--- OUTSIDE RECORDS SUMMARY | 2018-11-19 15:10 | XMS REPORT ---
[...] End Date Status Dosage System Date Metoprolol [facility] 10691473363 50 MG Orally Active 1 tablet Tartrate Twice a day with food Losartan [facility] 96932116594 100-25 MG Orally Active 1 tablet Potassium-HCTZ Once a day Results Name Result Date Reference Range Unit Abnormality Flag Knee Left 3 View Summary Purpose [employer]Works Submission
--- NOTE | 2018-11-19 15:41 | EDPHYS ---
Physician Documentation [facility] Name: César Cortes Age: 68 yrs Sex: Male : 1950 Arrival Date: 11/19/2018 Time: 15:09 Bed 12 Private MD: [facility] ED Physician Ascencion Chris HPI: 11/19 15:34 This 68 yrs old Male presents to ER via Ambulatory with complaints of Arm kb Pain, Shoulder Pain. 15:34 The patient or guardian complains of pain, that is acute, tenderness. The complaints kb affect the right bicep. Context: The problem was sustained outdoors. Onset: The symptoms/episode began/occurred 5 day(s) ago. Treatment prior to arrival includes: no previous treatment. Modifying factors: The symptoms are alleviated by nothing. the symptoms are aggravated by nothing. Associated signs and symptoms: Pertinent positives: pain, Pertinent negatives: decreased range of motion, deformity, erythema, fever, nausea, numbness, swelling, tingling, vomiting, warmth, weakness. Severity of symptoms: At their worst the symptoms were mild, moderate, in the emergency department the symptoms are unchanged. The patient has not experienced similar symptoms in the past. The patient has not recently seen a physician. Pt states he was pulling a suitcase out of a spot it was wedged into and thinks he irritated his rotator cuff 5 days ago. 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 c/o muscle cramps in upper arm that comes and goes depending on the positioning of his arm. Historical: - Allergies: 15:16 No Known Allergies; la1 - PMHx: 15:16 Diabetes - NIDDM; Hypertension; la1 - Immunization history:: Adult Immunizations up to date. - Social history:: Smoking status: Patient/guardian denies using tobacco. - Ebola Screening: : No symptoms or risks identified at this time. ROS: 15:30 Constitutional: Negative for fever, chills, and weight loss, ENT: Negative for injury, kb pain, and discharge, Neck: Negative for injury, pain, and swelling, Cardiovascular: Negative for chest pain, palpitations, and edema, Respiratory: Negative for shortness of breath, cough, wheezing, and pleuritic chest pain, Abdomen/GI: Negative for abdominal pain, nausea, vomiting, diarrhea, and constipation, Back: Negative for injury and pain, Skin: Negative for injury, rash, and discoloration, Neuro: Negative for headache, weakness, numbness, tingling, and seizure. 15:30 MS/extremity: Positive for injury or acute deformity, pain, tenderness, of the right bicep, muscle cramps. Exam: 15:30 Constitutional: This is a well developed, well nourished patient who is awake, alert, kb and in no acute distress. Head/Face: Normocephalic, atraumatic. Chest/axilla: Normal chest wall appearance and motion. Nontender with no deformity. No lesions are appreciated. Cardiovascular: Regular rate and rhythm with a normal S1 and S2. No gallops, murmurs, or rubs. Normal PMI, no JVD. No pulse deficits. Respiratory: Lungs have equal breath sounds bilaterally, clear to auscultation and percussion. No rales, rhonchi or wheezes noted. No increased work of breathing, no retractions or nasal flaring. Abdomen/GI: Soft, non-tender, with normal bowel sounds. No distension or tympany. No guarding or rebound. No evidence of tenderness throughout. Skin: Warm, dry with normal turgor. Normal color with no rashes, no lesions, and no evidence of cellulitis. Neuro: Awake and alert, GCS 15, oriented to person, place, time, and situation. Cranial nerves II-XII grossly intact. Motor strength 5/5 in all extremities. Sensory grossly intact. Cerebellar exam normal. Normal gait. 15:30 Musculoskeletal/extremity: Extremities: grossly normal except: noted in the right bicep: pain, tenderness, ROM: intact in all extremities, Circulation is intact in all extremities. Sensation intact. Vital Signs: 15:16 Pulse 75; Resp 16; Temp 97.8; Pulse Ox 98% on R/A; Weight 83.91 kg; Height 5 ft. 6 in. la1 (167.64 cm); 15:16 BP 139 / 80; la1 15:16 Body Mass Index 29.86 (83.91 kg, 167.64 cm) la1 MDM: 15:20 Patient medically screened. kb 15:30 Data reviewed: vital signs, nurses notes. Data interpreted: Pulse oximetry: on room air kb is 98 %. Interpretation: normal. Counseling: I had a detailed discussion with the patient and/or guardian regarding: the historical points, exam findings, and any diagnostic results supporting the discharge/admit diagnosis, the need for outpatient follow up, a orthopedic surgeon, to return to the emergency department if symptoms worsen or persist or if there are any questions or concerns that arise at home. Administered Medications: No medications were administered Disposition: 11/20 07:07 Co-signature as Attending Physician, Ascencion Chris MD I agree with the assessment and dayana plan of care. Disposition: 11/19/18 15:41 Discharged to Home. Impression: Muscle spasm - of right bicep, Pain in right shoulder. - Condition is Stable. - Discharge Instructions: Muscle Cramps and Spasms, Shoulder Pain, [id number]. - Prescriptions for Cyclobenzaprine 10 mg Oral Tablet - take 1 tablet by ORAL route every 8 hours As needed; 21 tablet. - Medication Reconciliation Form, Thank You Letter, Antibiotic Education, Prescription Opioid Use form. - Follow up: Emergency Department; When: As needed; Reason: Worsening of condition. Follow up: Private Physician; When: 2 - 3 days; Reason: Recheck today's complaints, Continuance of care, Re-evaluation by your physician. Signatures: Ashley Ritchie, [employer]-C [employer] F[employer]ER-Francisb Ascencion Chris MD MD cha Attema, Lee, RN RN la1 Sandra Marrero, VALDEMAR RN hb Corrections: (The following items were deleted from the chart) 11/19 15:55 15:41 11/19/2018 15:41 Discharged to Home. Impression: Muscle spasm - of right bicep; hb Pain in right shoulder. Condition is Stable. Forms are Medication Reconciliation Form, Thank You Letter, Antibiotic Education, Prescription Opioid Use. Follow up: Emergency Department; When: As needed; Reason: Worsening of condition. Follow up: Private Physician; When: 2 - 3 days; Reason: Recheck today's complaints, Continuance of care, Re-evaluation by your physician. kb
--- NOTE | 2018-11-19 15:41 | ER ---
Nurse's Notes [facility] Name: César Cortes Age: 68 yrs Sex: Male : 1950 Arrival Date: 11/19/2018 Time: 15:09 Bed 12 Private MD: Emiliano Hunter Diagnosis: Muscle spasm-of right bicep;Pain in right shoulder Presentation: 11/19 15:15 Presenting complaint: Patient states: My right shoulder has been hurting me since last la1 week but 2 days ago I think I injured my right bicep. Transition of care: patient was not received from another setting of care. Onset of symptoms was November 19, 2018. Risk Assessment: Do you want to hurt yourself or someone else? Patient reports no desire to harm self or others. Initial Sepsis Screen: Does the patient meet any 2 criteria? No. Patient's initial sepsis screen is negative. Does the patient have a suspected source of infection? No. Patient's initial sepsis screen is negative. Care prior to arrival: None. 15:15 Method Of Arrival: Ambulatory la1 15:15 Acuity: JOHN 4 la1 Historical: - Allergies: 15:16 No Known Allergies; la1 - PMHx: 15:16 Diabetes - NIDDM; Hypertension; la1 - Immunization history:: Adult Immunizations up to date. - Social history:: Smoking status: Patient/guardian denies using tobacco. - Ebola Screening: : No symptoms or risks identified at this time. Screenin:17 Abuse screen: Denies threats or abuse. Nutritional screening: No deficits noted. la1 Tuberculosis screening: No symptoms or risk factors identified. Fall Risk None identified. Assessment: 15:16 General: Appears in no apparent distress. Behavior is calm, cooperative. Pain: la1 Complains of pain in anterior aspect of right shoulder and right bicep. Neuro: Level of Consciousness is awake, alert, obeys commands, Oriented to person, place, time, situation. Musculoskeletal: Circulation, motion, and sensation intact. Capillary refill < 3 seconds, is brisk, in bilateral fingers. Reports pain in anterior aspect of right shoulder and right bicep. Vital Signs: 15:16 Pulse 75; Resp 16; Temp 97.8; Pulse Ox 98% on R/A; Weight 83.91 kg; Height 5 ft. 6 in. la1 (167.64 cm); 15:16 BP 139 / 80; la1 15:16 Body Mass Index 29.86 (83.91 kg, 167.64 cm) la1 ED Course: 15:09 Patient arrived in ED. as 15:12 Emiliano Hunter DO is Private Physician. as 15:15 Triage completed. la1 15:16 Arm band placed on left wrist. la1 15:17 Patient has correct armband on for positive identification. la1 15:17 No provider procedures requiring assistance completed. Patient did not have IV access la1 during this emergency room visit. 15:20 Ashley Ritchie FNP-C is PHCP. kb 15:20 Ascencion Chris MD is Attending Physician. kb 15:55 Sandra Marrero, RN is Primary Nurse. hb Administered Medications: No medications were administered Outcome: 15:41 Discharge ordered by MD. kb 15:50 Discharged to home ambulatory. hb 15:50 Condition: stable 15:50 Discharge instructions given to patient, Instructed on discharge instructions, follow up and referral plans. medication usage, Demonstrated understanding of instructions, follow-up care, medications, Prescriptions given X 1. 15:55 Patient left the ED. hb Signatures: Ashley Ritchie FNP-C FNP-Pippa Bingham Lee, RN RN la1 Sandra Marrero, RN RN hb
[2018-11-19 17:15] VITALS: BP 139/80; TEMP 97.8; O2SAT 98
== END 2018-11-19 15:55 | disposition home or self-care (01) ==
LOC: ER 15:07
DX: M62.838 Other muscle spasm (principal); I10 Essential (primary) hypertension
CPT/HCPCS: 99282